=== PATIENT | male | born 1995 | race Caucasian/White ===

== ENCOUNTER 2018-04-21 20:08 | Emergency (ER) | payer BC, OTHER ==
[~2018-04-21] VITALS: Ht 170.2 cm; Wt 68.0 kg
== END 2018-04-21 21:51 | disposition home or self-care (01) ==
LOC: ER 20:08
DX: S42.031A Displaced fracture of lateral end of right clavicle, initial encounter for closed fracture (principal); S09.90XA Unspecified injury of head, initial encounter; V86.56XA Driver of dirt bike or motor/cross bike injured in nontraffic accident, initial encounter
CPT/HCPCS: 71046; 73030; 99283